=== PATIENT | female | born 1945 | race African-American/Black ===

== ENCOUNTER 2018-12-27 17:31 | Emergency (ER) | payer MEDICARE ==
[~2018-12-27] VITALS: Ht 165.1 cm; Wt 85.7 kg
[2018-12-27] MEDS ORDERED: AMLODIPINE-BEN1 EAC3 PO (18:00)
[2018-12-27] MEDS ORDERED: TRIAMTERENE-HCTZ1 EA PO (18:00)
[2018-12-27] MEDS ORDERED: CARVEDILOL12.5 MG PO (18:00)
[2018-12-27] MEDS ORDERED: GLIPIZIDE5 MG PO (18:00)
[2018-12-27] MEDS ORDERED: ESCITALOPRAM OX20 MG PO (18:00)
[2018-12-27] MEDS ORDERED: METFORMIN HCL750 MG PO (18:00)
--- NOTE | 2018-12-27 18:05 | NUR ---
Assisted pt to the restroom.
[2018-12-27 18:35] LABS: BASOPHILS % 0.3 % (0.0-1.0); EOSINOPHILS # (AUTO) 0.1 (0.0-0.4); EOSINOPHILS % 0.6 % (0.0-6.0); HEMATOCRIT 39.6 % (34.2-44.1); HEMOGLOBIN 13.1 g/dL (12.0-16.0); LYMPHOCYTES % 18.1 % (18.0-39.1); MEAN CORPUSCULAR HEMOGLOBIN 27.6 pg (28-32); MEAN CORPUSCULAR HGB CONC 33.1 g/dL (31-35); MEAN CORPUSCULAR VOLUME 83.5 fL (81-99); MONOCYTES # (AUTO) 0.8 (0.2-0.8); MONOCYTES % 7.2 % (4.4-11.3); NEUTROPHILS % 73.4 % (38.7-80.0); PLATELET COUNT 275 x10e3/uL (140-360); RED BLOOD COUNT 4.74 x10e6/uL (3.6-5.1); RED CELL DISTRIBUTION WIDTH 13.5 % (11.7-14.4)
[2018-12-27 18:45] LABS: CLARITY,URINE CLEAR (CLEAR); COLOR,URINE YELLOW (YELLOW)
[2018-12-27 18:46] LABS: BACTERIA,URINE MANY /HPF; BILIRUBIN,URINE NEGATIVE (NEGATIVE); KETONES,URINE NEGATIVE (NEGATIVE); LEUKOCYTE ESTERASE ,URINE NEGATIVE (NEGATIVE); NITRITE,URINE NEGATIVE (NEGATIVE); PROTEIN,URINE DIPSTICK NEGATIVE (NEGATIVE); URINE UROBILINOGEN 1 mg/dL (0.2 - 1); WBC,URINE (MAN) 0-5 /HPF (0-5)
[2018-12-27 18:47] LABS: ALANINE AMINOTRANSFERASE 11 IU/L (0-55); ALBUMIN 4.2 g/dL (3.5-5.0); ALBUMIN/GLOBULIN RATIO 1.4 (0.8-2.0); ALKALINE PHOSPHATASE 64 IU/L (40-150); ANION GAP 19.2 mmol/L (8-16); BLOOD UREA NITROGEN 21 mg/dL (7-26); BUN/CREATININE RATIO 20 (6-25); CALCIUM 9.8 mg/dL (8.4-10.2); CARBON DIOXIDE 23 mmol/L (22-29); CHLORIDE 102 mmol/L (98-107); CREATININE, SERUM 1.05 mg/dL (0.57-1.11); EST GLOMERULAR FILTRATION RATE > 60 ML/MIN (60-); GLUCOSE 90 mg/dL (74-118); POTASSIUM 4.2 mmol/L (3.5-5.1); SODIUM 140 mmol/L (136-145)
--- NOTE | 2018-12-27 19:00 | NUR ---
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
--- NOTE | 2018-12-27 19:01 | NUR ---
Walking bedside rounds completed with car shifter CONCHIS Lindo.
--- NOTE | 2018-12-27 19:15 | NUR ---
REPORT AND PATIENT CARE ENDORSED TO BEATRICE
[2018-12-27] MEDS ORDERED: IOPAMIDOL 370 MG/ML 200 ML INFUS..BTL INJ ONE (20:30)
[2018-12-27] MEDS ORDERED: SODIUM CHLORIDE 0.9% 50ML 50 ML ONE (20:30)
[2018-12-27 20:47] LABS: AMYLASE 102 U/L (25-125); LIPASE 25 U/L (8-78)
--- NOTE | 2018-12-27 21:29 | Diagnostic Imaging Report ---
ADDENDUM #1 7 mm right lower lobe nodule. If no priors are available for comparison, recommend 6-12 month follow-up chest CT. Signed by: Dr Abby Navarro MD on 12/28/2018 12:35 AM ORIGINAL REPORT EXAM: CT ABDOMEN/PELVIS W DATE: 12/27/2018 8:05 PM INDICATION: Mid abdominal pain COMPARISON: None TECHNIQUE: The abdomen and pelvis were scanned using a multidetector helical scanner. Coronal and sagittal reformations were obtained. CT low dose techniques were utilized, as applicable. IV Contrast: 100 ml Isovue 300/370 FINDINGS: LOWER THORAX: Indeterminate 7 mm right lower lobe nodule. LIVER/BILIARY: No masses. No ductal dilatation. GALLBLADDER: Small gallstones noted near the neck. Otherwise unremarkable. SPLEEN: Unremarkable PANCREAS: Unremarkable ADRENALS: Indeterminate 1.3 cm left adrenal nodule KIDNEYS: Dominant 6.7 cm right renal cyst. Additional too small to characterize hypodensities. No hydronephrosis. GI TRACT: Small hiatal hernia. No wall thickening or evidence of obstruction. Diverticulosis. Normal appendix. VESSELS: Mild to moderate atherosclerotic changes PERITONEUM/RETROPERITONEUM: No free air or fluid LYMPH NODES: No lymphadenopathy REPRODUCTIVE ORGANS/BLADDER: Unremarkable SOFT TISSUES: Right lower lateral abdominal wall small bowel containing hernia without obstruction. BONES: Multilevel degenerative changes with minimal anterolisthesis of L3 on L4, L4 and L5 and canal stenosis at L4-5. IMPRESSION: 1. No acute abnormality in the abdomen or pelvis. 2. Cholelithiasis. Signed by: Dr Abby Navarro MD on 12/27/2018 9:26 PM
[2018-12-27 22:54] VITALS: BP 145/64
== END 2018-12-27 23:08 | disposition home or self-care (01) ==
LOC: ER 17:31
DX: R10.13 Epigastric pain (principal); R10.33 Periumbilical pain; R11.0 Nausea; K80.70 Calculus of gallbladder and bile duct without cholecystitis without obstruction
CPT/HCPCS: 36415; 74177; 80053; 81001; 82150; 83690; 85025; 93005; 99284; Q9967